=== PATIENT | female | born 1980 | race Caucasian/White ===

== ENCOUNTER → 2017-08-02 | Outpatient (CLI) | payer BC | LOC: FIMAGING 08:24 | PROVIDERS: ATTEND Advanced Practice Midwife | DX: O09.812 Supervision of pregnancy resulting from assisted reproductive technology, second trimester (principal); O09.512 Supervision of elderly primigravida, second trimester; D68.51 Activated protein C resistance; Z3A.19 19 weeks gestation of pregnancy ==

== ENCOUNTER → 2017-09-04 | Outpatient (CLI) | payer BC | LOC: FIMAGING 08:11 | PROVIDERS: ATTEND Advanced Practice Midwife | DX: O09.812 Supervision of pregnancy resulting from assisted reproductive technology, second trimester (principal); Z3A.23 23 weeks gestation of pregnancy ==